=== PATIENT | male | born 1990 | race Caucasian/White ===

== ENCOUNTER 2017-11-06 19:51 | Emergency (ER) | payer MEDICAID ==
[~2017-11-06] VITALS: Ht 170.2 cm; Wt 97.7 kg
[2017-11-06] MEDS ORDERED: IBUPROFEN 800 MG TABLET PO ONE (20:30)
[2017-11-06 21:27] VITALS: BP 122/65
== END 2017-11-06 21:29 | disposition home or self-care (01) ==
LOC: EMS 19:52
DX: S62.662A Nondisplaced fracture of distal phalanx of right middle finger, initial encounter for closed fracture (principal); F17.210 Nicotine dependence, cigarettes, uncomplicated; W23.0XXA Caught, crushed, jammed, or pinched between moving objects, initial encounter; Y93.89 Activity, other specified; Y92.89 Other specified places as the place of occurrence of the external cause; Y99.8 Other external cause status
CPT/HCPCS: 99284; 99406